=== PATIENT | female | born 1990 | race Caucasian/White ===

== ENCOUNTER → 2016-11-06 | Outpatient (CLI) | payer OTHER ==
[~2016-11-06] MED LIST: GADOBUTROL 10 ML VIAL IVP ONE
== END ==
LOC: FIMAGING 13:33
PROVIDERS: ATTEND Psychiatry & Neurology Neurology
DX: M50.31 Other cervical disc degeneration, high cervical region (principal); H53.9 Unspecified visual disturbance; R20.2 Paresthesia of skin; R25.1 Tremor, unspecified; R29.2 Abnormal reflex
CPT/HCPCS: A9585

== ENCOUNTER → 2016-11-27 | Outpatient (CLI) | payer OTHER | LOC: FIMAGING 12:10 | PROVIDERS: ATTEND Psychiatry & Neurology Neurology | DX: H53.9 Unspecified visual disturbance (principal); R20.0 Anesthesia of skin; R29.2 Abnormal reflex | CPT/HCPCS: A9585 ==

== ENCOUNTER → 2016-12-10 | Outpatient (CLI) | payer OTHER ==
--- NOTE | 2016-12-12 14:22 | CPEEG ---
[f rep st] ELECTROENCEPHALOGRAM DATE OF STUDY: 12/11/2016 DATE OF INTERPRETATION: 12/11/2016 INTERPRETATION: Normal EEG during wakefulness and sleep. There are no potentially epileptogenic abnormalities present in the recording. REPORT: This EEG contains 10 Hz alpha activity to the posterior head regions. The background activity was normal and symmetric and included a bi-central mu rhythm, maximal right. This is a normal background rhythm. There was no abnormal activation at rest, during photic stimulation, or hyperventilation. The patient became drowsy and fell asleep during the study. There was no abnormal activation during drowsiness, sleep, or during times of arousal. /[id number]/MODL MTDD
== END ==
LOC: FCPNEURO 15:02
PROVIDERS: ATTEND Psychiatry & Neurology Neurology
DX: H53.9 Unspecified visual disturbance (principal)